=== PATIENT | male | born 1970 | race Caucasian/White ===

== ENCOUNTER 2018-06-07 23:33 | Emergency (ER) | payer MEDICAID ==
[~2018-06-07] VITALS: Ht 182.9 cm; Wt 100.0 kg
[~2018-06-07 23:33] MED LIST: LACT1CAP26 PO
[2018-06-07] MEDS ORDERED: normal saline 1000ML IV soln IVB ONE (23:40)
[2018-06-07 23:56] LABS: BASOPHILS # (AUTO) 0.1 X10'3 (0-0.2); BASOPHILS % (AUTO) 0.6 % (0-1); EOSINOPHILS # (AUTO) 0.3 X10'3 (0-0.9); HEMATOCRIT 41.5 % (42.0-52.0); HEMOGLOBIN 13.8 g/dl (14.0-17.9); LYMPHOCYTES # (AUTO) 2.4 X10'3 (1.1-4.8); LYMPHOCYTES % (AUTO) 27.6 % (21-51); MEAN CORPUSCULAR HEMOGLOBIN 29.2 PG (27.0-31.0); MEAN CORPUSCULAR HGB CONC 33.3 g/dL (33.0-36.5); MEAN CORPUSCULAR VOLUME 87.9 FL (78-98); MEAN PLATELET VOLUME 7.7 FL (7.4-10.4); MONOCYTES # (AUTO) 0.6 X10'3 (0-0.9); MONOCYTES % (AUTO) 7.4 % (2-12); NEUTROPHILS # (AUTO) 5.2 X10'3 (1.8-7.7); NEUTROPHILS % (AUTO) 60.4 % (42-75); PLATELET COUNT 259 X10'3 (140-440); RED BLOOD COUNT 4.72 X10'6 (4.70-6.10); WHITE BLOOD COUNT 8.6 X10'3 (4.5-11.0)
[2018-06-08 00:06] LABS: ALANINE AMINOTRANSFERASE 28 U/L (12-78); ALBUMIN 3.5 G/DL (3.4-5.0); ALBUMIN/GLOBULIN RATIO 0.9 (1.1-1.5); ALKALINE PHOSPHATASE 112 IU/L (46-116); ANION GAP 3 (8-16); ASPARTATE AMINO TRANSFERASE 24 U/L (10-37); BILIRUBIN,TOTAL 0.2 MG/DL (0.1-1.0); BLOOD UREA NITROGEN 14 MG/DL (7-18); BUN/CREATININE RATIO 14.1 (5.4-32.0); CALCIUM 8.5 MG/DL (8.5-10.1); CHLORIDE 103 MMOL/L (99-107); CREATININE 0.99 MG/DL (0.60-1.10); ETHANOL < 0.010 GM/DL (0.0-0.010); GLUCOSE 104 MG/DL (70-104); POTASSIUM 4.5 MMOL/L (3.5-5.1); SODIUM 140 MMOL/L (135-145); TOTAL CARBON DIOXIDE 33.6 MMOL/L (24-32); TOTAL PROTEIN 7.4 G/DL (6.4-8.2); eGFR 81 ML/MIN
[2018-06-08 05:00] VITALS: BP 119/86
--- NOTE | 2018-06-08 05:37 | NUR ---
MAY CALL ELIZABETH WHEN PT READY FOR DISCHARGE [phone] OR [phone]
== END 2018-06-08 06:24 | disposition home or self-care (01) ==
LOC: ER 23:34
DX: R40.2412 Glasgow coma scale score 13-15, at arrival to emergency department (principal); F19.10 Other psychoactive substance abuse, uncomplicated; F12.90 Cannabis use, unspecified, uncomplicated; F15.90 Other stimulant use, unspecified, uncomplicated; F11.90 Opioid use, unspecified, uncomplicated; F17.200 Nicotine dependence, unspecified, uncomplicated; Z59.0 Homelessness; Z56.0 Unemployment, unspecified; Z98.890 Other specified postprocedural states; Z88.0 Allergy status to penicillin
CPT/HCPCS: 36415; 71045; 80053; 80320; 82948; 85025; 93005; 99284; J7030

== ENCOUNTER 2019-01-26 16:05 | Inpatient (IN) | payer MEDICAID, OTHER ==
[~2019-01-26] VITALS: Ht 185.4 cm; Wt 82.3 kg
[2019-01-26] MEDS ORDERED: LIDOcaine 1% 30ml preserv. free vial IJ STA (16:58)
[2019-01-26] MEDS ORDERED: BUPIVAcaine/PF 7.5mg/ml (0.75%) 10ml vial IJ ONE (17:00)
[2019-01-26] MEDS ORDERED: ketorolac trometh. 30mg/ml inj. IV ONE (17:15)
[2019-01-26] MEDS ORDERED: morphine 10mg/ml inj. IV ONE ×2 (17:25→19:00)
[2019-01-26] MEDS: normal saline 1000ml 1,000 ML IV SCH (17:48)
[2019-01-26] MEDS ORDERED: magnesium 2GM in 50ml NS 50 ML IV PRN (17:50)
[2019-01-26] MEDS ORDERED: HYDROcodone/acetaminophen 5mg/325mg tablet PO PRN (17:50)
[2019-01-26] MEDS ORDERED: potassium CL 10mEq/100ml bag 100 ML IV PRN ×2 (17:50)
[2019-01-26] MEDS ORDERED: morphine 2 MG/ML inj. syringe IV PRN (17:50)
[2019-01-26] MEDS ORDERED: acetaminophen 325mg tablet PO PRN ×2 (17:50)
[2019-01-26] MEDS ORDERED: ondansetron/PF 4mg/2ml inj IV PRN (17:50)
[2019-01-26] MEDS ORDERED: magnesium 4gm in 100ml NS 100 ML IV PRN (17:50)
[2019-01-26] MEDS ORDERED: magnesium Cl slow-release 64mg tablet PO PRN (17:50)
[2019-01-26] MEDS ORDERED: potassium Cl 20 mEq SR tablet PO PRN (17:50)
[2019-01-26] MEDS: morphine 2 MG/ML inj. syringe IV PRN ×2 (18:07→21:56)
[2019-01-26] MEDS ORDERED: NO HOME MEDS (18:12)
--- NOTE | 2019-01-26 18:56 | NUR ---
verbal received by sai ariza for msiv 6 mg x1 now. pt in severe pain as he was just transferred onto the hospital bed and placed in 10lbs traction. pt with room assisignment. report being given now.
[2019-01-26 19:30] VITALS: BP 125/81
--- NOTE | 2019-01-26 19:30 | NUR ---
Patient in room ORTHO 4020. I have received report from CALL CENTER OPERATOR and had the opportunity to ask questions and assume patient care.
[2019-01-26 19:34] LABS: BASOPHILS % (AUTO) 0.1 % (0-1); EOSINOPHILS % (AUTO) 0.1 % (0-6); HEMATOCRIT 38.9 % (42.0-52.0); HEMOGLOBIN 13.4 g/dl (14.0-17.9); LYMPHOCYTES # (AUTO) 1.3 X10'3 (1.1-4.8); LYMPHOCYTES % (AUTO) 8.5 % (21-51); MEAN CORPUSCULAR HGB CONC 34.5 g/dL (33.0-36.5); MEAN CORPUSCULAR VOLUME 87.1 FL (78-98); MEAN PLATELET VOLUME 7.1 FL (7.4-10.4); MONOCYTES # (AUTO) 0.7 X10'3 (0-0.9); MONOCYTES % (AUTO) 4.7 % (2-12); NEUTROPHILS % (AUTO) 86.6 % (42-75); PLATELET COUNT 247 X10'3 (140-440); RED BLOOD COUNT 4.47 X10'6 (4.70-6.10); RED CELL DISTRIBUTION WIDTH 13.8 % (11.5-14.5)
[2019-01-26 19:42] LABS: ALANINE AMINOTRANSFERASE 24 U/L (12-78); ALBUMIN 3.4 G/DL (3.4-5.0); ALBUMIN/GLOBULIN RATIO 0.9 (1.1-1.5); ALKALINE PHOSPHATASE 102 IU/L (46-116); ANION GAP 8 (8-16); ASPARTATE AMINO TRANSFERASE 29 U/L (10-37); BILIRUBIN,TOTAL 0.5 MG/DL (0.1-1.0); BLOOD UREA NITROGEN 6 MG/DL (7-18); BUN/CREATININE RATIO 6.3 (5.4-32.0); CALCIUM 8.3 MG/DL (8.5-10.1); CHLORIDE 101 MMOL/L (99-107); CREATININE 0.95 MG/DL (0.60-1.10); GLUCOSE 95 MG/DL (70-104); POTASSIUM 3.4 MMOL/L (3.5-5.1); SODIUM 138 MMOL/L (135-145); TOTAL CARBON DIOXIDE 29.3 MMOL/L (24-32); TOTAL PROTEIN 7.2 G/DL (6.4-8.2); eGFR 85 ML/MIN
[2019-01-26] MEDS: potassium Cl 20 mEq SR tablet PO PRN (20:31)
[2019-01-26] MEDS: HYDROcodone/acetaminophen 10/325mg tab PO PRN (20:31)
[2019-01-26] MEDS: docusate sod 100mg capsule PO SCH (20:31)
[2019-01-26] MEDS: heparin, porcine 5000 units/ml vial SQ SCH (20:33)
[2019-01-26] MEDS ORDERED: temazepam 15mg capsule PO PRN (21:00)
[2019-01-26] MEDS ORDERED: morphine 4 MG/ML inj SYRINge IV ONE (23:35)
[2019-01-27] VITALS (19 sets, daily range): BP systolic 115–148; BP diastolic 61–106
[2019-01-27] MEDS: HYDROcodone/acetaminophen 10/325mg tab PO PRN ×4 (00:03→20:00)
[2019-01-27] MEDS: potassium Cl 20 mEq SR tablet PO PRN (00:03)
[2019-01-27] MEDS ORDERED: morphine/NS 5 mg/ml CADD 100 ML IV SCH ×2 (02:25→02:37)
[2019-01-27] MEDS ORDERED: CADD PCA waste documentation MC SCH (02:40)
[2019-01-27] MEDS ORDERED: naloxone 0.4 mg/ml inj IV PRN ×2 (02:40→03:40)
[2019-01-27] MEDS ORDERED: morphine/NS 5 mg/ml CADD 50 ML IV SCH (03:38)
[2019-01-27] MEDS ORDERED: CADD PCA waste documentation MC PRN (03:40)
[2019-01-27] MEDS: normal saline 1000ml 1,000 ML IV SCH ×2 (03:48→13:55)
[2019-01-27] MEDS: MORPHINE CADD 5 MG/ML 50ML IV SCH ×5 (04:10→11:00)
--- NOTE | 2019-01-27 06:00 | NUR ---
Patient in room ORTHO 4020. I have received report from KATELYN CHEEMA and had the opportunity to ask questions and assume patient care.
[2019-01-27 06:23] LABS: BASOPHILS % (AUTO) 0.1 % (0-1); EOSINOPHILS % (AUTO) 0.4 % (0-6); HEMATOCRIT 37.1 % (42.0-52.0); HEMOGLOBIN 12.7 g/dl (14.0-17.9); LYMPHOCYTES # (AUTO) 2.1 X10'3 (1.1-4.8); LYMPHOCYTES % (AUTO) 22.3 % (21-51); MEAN CORPUSCULAR HEMOGLOBIN 30.5 PG (27.0-31.0); MEAN CORPUSCULAR HGB CONC 34.1 g/dL (33.0-36.5); MEAN CORPUSCULAR VOLUME 89.3 FL (78-98); MEAN PLATELET VOLUME 7.1 FL (7.4-10.4); MONOCYTES # (AUTO) 0.6 X10'3 (0-0.9); MONOCYTES % (AUTO) 6.8 % (2-12); NEUTROPHILS # (AUTO) 6.7 X10'3 (1.8-7.7); NEUTROPHILS % (AUTO) 70.4 % (42-75); PLATELET COUNT 214 X10'3 (140-440); RED BLOOD COUNT 4.16 X10'6 (4.70-6.10); RED CELL DISTRIBUTION WIDTH 13.8 % (11.5-14.5); WHITE BLOOD COUNT 9.5 X10'3 (4.5-11.0)
[2019-01-27 06:36] LABS: ALANINE AMINOTRANSFERASE 25 U/L (12-78); ALBUMIN 3.2 G/DL (3.4-5.0); ALBUMIN/GLOBULIN RATIO 0.9 (1.1-1.5); ALKALINE PHOSPHATASE 100 IU/L (46-116); ANION GAP 5 (8-16); ASPARTATE AMINO TRANSFERASE 26 U/L (10-37); BILIRUBIN,TOTAL 0.8 MG/DL (0.1-1.0); BLOOD UREA NITROGEN 6 MG/DL (7-18); BUN/CREATININE RATIO 6.4 (5.4-32.0); CHLORIDE 106 MMOL/L (99-107); CREATININE 0.94 MG/DL (0.60-1.10); GLUCOSE 110 MG/DL (70-104); MAGNESIUM 1.7 MG/DL (1.5-2.4); POTASSIUM 3.7 MMOL/L (3.5-5.1); SODIUM 140 MMOL/L (135-145); TOTAL PROTEIN 6.7 G/DL (6.4-8.2); eGFR 86 ML/MIN
[2019-01-27] MEDS: docusate sod 100mg capsule PO SCH ×2 (07:15→19:59)
[2019-01-27] MEDS: K and/or MAG REPLACEMENT MC SCH (07:15)
[2019-01-27] MEDS: heparin, porcine 5000 units/ml vial SQ SCH (07:16)
[2019-01-27 08:00] LABS: CLARITY,URINE CLEAR (Clear); COLOR,URINE YELLOW (Yellow); GLUCOSE, URINE NEGATIVE (Neg); KETONES,URINE NEGATIVE (Neg); LEUKOCYTE ESTERASE ,URINE NEGATIVE (Neg); NITRITES, URINE NEGATIVE (Neg); OCCULT BLOOD,URINE MODERATE (Neg); PROTEIN,URINE NEGATIVE (Neg); UROBILINOGEN,URINE 0.2 E.U/dL (0.2-1.0)
[2019-01-27] MEDS ORDERED: docusate sod 100mg capsule PO SCH (08:00)
[2019-01-27 08:02] LABS: UA COLLECTION TYPE FOLEY CATH
[2019-01-27 08:06] LABS: BACTERIA,URINE NONE SEEN /HPF (Neg); WBC,URINE 0-4 /HPF (0-4)
[2019-01-27 08:07] LABS: MUCUS STRANDS NONE SEEN /LPF (Neg); SQUAMOUS EPITHELIAL CELL,UR NONE SEEN /LPF (FEW)
[2019-01-27] MEDS ORDERED: ringers solution, lacted 1,000 ML IV SCH (08:07)
[2019-01-27] MEDS ORDERED: hydrALAZINE 20mg/ml inj. IV PRN (08:10)
[2019-01-27] MEDS ORDERED: ondansetron/PF 4mg/2ml inj IV PRN (08:10)
[2019-01-27] MEDS ORDERED: labetalol 20mg/4ml (5mg/ml) syringe IV PRN (08:10)
[2019-01-27] MEDS ORDERED: fentaNYL/PF 50MCG/1 ML 2ML syringe IV PRN ×2 (08:10)
[2019-01-27] MEDS ORDERED: morphine 4 MG/ML inj SYRINge IV PRN ×2 (08:10)
[2019-01-27 08:16] LABS: URINE AMPHETAMINE SCREEN POSITIVE (Neg); URINE BARBITUATE SCREEN NEGATIVE (Neg); URINE BENZODIAZEPINES SCREEN NEGATIVE (Neg); URINE CANNABINOID SCREEN POSITIVE (Neg); URINE COCAINE SCREEN NEGATIVE (Neg); URINE METHADONE SCREEN NEGATIVE (Neg); URINE OPIATE SCREEN POSITIVE (Neg); URINE PHENCYCLIDINE SCREEN NEGATIVE (Neg)
[2019-01-27] MEDS ORDERED: fentaNYL/PF 50MCG/1 ML 2ML syringe ONE ×2 (08:35→09:31)
[2019-01-27] MEDS ORDERED: LIDOcaine 2% (20mg/ml) 5ml vial ONE (08:36)
[2019-01-27] MEDS ORDERED: dexamethasone sod phosphate 4mg/ml inj. ONE (08:36)
[2019-01-27] MEDS ORDERED: midazolam 2 mg/2 ml injection ONE (08:36)
[2019-01-27] MEDS ORDERED: ondansetron/PF 4mg/2ml inj ONE (08:36)
[2019-01-27] MEDS ORDERED: propofol inj 20 ML IV ONE (08:36)
--- NOTE | 2019-01-27 08:40 | NUR ---
PATIENT TO THE OR.
[2019-01-27] MEDS ORDERED: sevoflurane 250ml liquid IH ONE (08:50)
[2019-01-27] MEDS ORDERED: clindamycin phosphate 150mg/ml inj. ONE (08:54)
[2019-01-27] MEDS ORDERED: acetaminophen 1,000mg/100ml IV 100 ML IV ONE (09:12)
--- NOTE | 2019-01-27 10:00 | NUR ---
ADMITTED TO PACU FROM OR ACCOMPANIED BY ANESTHESIA. INTIAL PHYSICAL ASSESSMENT DONE AND RECORDED. REPORT RECEIVED FROM ANESTHESIA. NOTED STAINING ON ISLAND DRESSING LEFT LATERAL HIP, MARKED, DR NICHOLAS OBSERVED AND AWARE, TO REINFORCE IF NEEDED.
--- NOTE | 2019-01-27 11:00 | NUR ---
PACU DISCHARGE CRITERIA MET, REPORT GIVEN TO FLOOR. DENIES PAIN OR DISCOMFORT, TRANSFERRED TO ROOM IN STABLE GOOD CONDITION.
--- NOTE | 2019-01-27 11:05 | NUR ---
[facility] C[facility], RECEIVED REPORT FROM DUYEN CHEEMA, POST OP VITALS STARTED, REPORTS 0/10 PAIN, , WILL CONTINUE TO MONITOR.
[2019-01-27] MEDS: morphine 4 MG/ML inj SYRINge IV PRN ×3 (13:15→22:30)
[2019-01-27] MEDS: clindamycin 600mg/D5W 50ml 50 ML IV SCH ×2 (13:55→19:58)
--- NOTE | 2019-01-27 18:10 | NUR ---
Problems reprioritized. Patient report given, questions answered & plan of care reviewed with KATELYN CHEEMA.
--- NOTE | 2019-01-27 18:13 | NUR ---
Problems reprioritized. Patient report given, questions answered & plan of care reviewed with KATELYN CHEEMA.
[2019-01-28] MEDS: normal saline 1000ml 1,000 ML IV SCH ×3 (00:13→19:04)
[2019-01-28] MEDS: HYDROcodone/acetaminophen 10/325mg tab PO PRN ×6 (00:17→22:50)
[2019-01-28 01:59] VITALS: BP 127/81
[2019-01-28] MEDS: morphine 4 MG/ML inj SYRINge IV PRN (04:28)
[2019-01-28 05:32] LABS: BASOPHILS % (AUTO) 0.1 % (0-1); EOSINOPHILS % (AUTO) 0 % (0-6); HEMATOCRIT 30.9 % (42.0-52.0); HEMOGLOBIN 10.6 g/dl (14.0-17.9); LYMPHOCYTES # (AUTO) 1.7 X10'3 (1.1-4.8); LYMPHOCYTES % (AUTO) 12.7 % (21-51); MEAN CORPUSCULAR HEMOGLOBIN 30.4 PG (27.0-31.0); MEAN CORPUSCULAR HGB CONC 34.2 g/dL (33.0-36.5); MEAN CORPUSCULAR VOLUME 88.8 FL (78-98); MEAN PLATELET VOLUME 7.4 FL (7.4-10.4); MONOCYTES % (AUTO) 7.8 % (2-12); NEUTROPHILS # (AUTO) 10.6 X10'3 (1.8-7.7); NEUTROPHILS % (AUTO) 79.4 % (42-75); PLATELET COUNT 188 X10'3 (140-440); RED BLOOD COUNT 3.47 X10'6 (4.70-6.10); RED CELL DISTRIBUTION WIDTH 13.9 % (11.5-14.5); WHITE BLOOD COUNT 13.3 X10'3 (4.5-11.0)
[2019-01-28 05:53] LABS: ALANINE AMINOTRANSFERASE 25 U/L (12-78); ALBUMIN 2.9 G/DL (3.4-5.0); ALBUMIN/GLOBULIN RATIO 0.9 (1.1-1.5); ALKALINE PHOSPHATASE 84 IU/L (46-116); ANION GAP 8 (8-16); ASPARTATE AMINO TRANSFERASE 24 U/L (10-37); BILIRUBIN,TOTAL 0.4 MG/DL (0.1-1.0); BLOOD UREA NITROGEN 10 MG/DL (7-18); BUN/CREATININE RATIO 11.5 (5.4-32.0); CHLORIDE 105 MMOL/L (99-107); CREATININE 0.87 MG/DL (0.60-1.10); GLUCOSE 132 MG/DL (70-104); MAGNESIUM 1.8 MG/DL (1.5-2.4); SODIUM 140 MMOL/L (135-145); TOTAL CARBON DIOXIDE 27.3 MMOL/L (24-32); eGFR > 90 ML/MIN
[2019-01-28 06:00] VITALS: BP 117/86
--- NOTE | 2019-01-28 06:22 | NUR ---
received report from danielle james
[2019-01-28] MEDS: K and/or MAG REPLACEMENT MC SCH (07:07)
[2019-01-28] MEDS: enoxaparin 40mg/0.4ml syringe SQ SCH (07:12)
[2019-01-28] MEDS: docusate sod 100mg capsule PO SCH ×2 (07:13→20:00)
[2019-01-28 10:00] VITALS: BP 132/71
[2019-01-28 14:00] VITALS: BP 116/78
[2019-01-28 18:00] VITALS: BP 155/93
--- NOTE | 2019-01-28 18:20 | NUR ---
GAVE REPORT TO June,
[2019-01-28 22:00] VITALS: BP 111/76
[2019-01-29] MEDS: normal saline 1000ml 1,000 ML IV SCH ×2 (04:51→15:27)
[2019-01-29] MEDS: HYDROcodone/acetaminophen 10/325mg tab PO PRN ×4 (04:54→19:02)
[2019-01-29 06:00] VITALS: BP 118/87
--- NOTE | 2019-01-29 06:00 | NUR ---
Patient in room ORTHO 4020. I have received report from Noemí RN and had the opportunity to ask questions and assume patient care.
[2019-01-29 06:11] LABS: BASOPHILS % (AUTO) 0.3 % (0-1); EOSINOPHILS # (AUTO) 0.2 X10'3 (0-0.9); EOSINOPHILS % (AUTO) 1.7 % (0-6); HEMATOCRIT 28.6 % (42.0-52.0); HEMOGLOBIN 9.8 g/dl (14.0-17.9); LYMPHOCYTES # (AUTO) 2.8 X10'3 (1.1-4.8); LYMPHOCYTES % (AUTO) 29.2 % (21-51); MEAN CORPUSCULAR HEMOGLOBIN 30.7 PG (27.0-31.0); MEAN CORPUSCULAR HGB CONC 34.3 g/dL (33.0-36.5); MEAN CORPUSCULAR VOLUME 89.5 FL (78-98); MEAN PLATELET VOLUME 7.1 FL (7.4-10.4); MONOCYTES # (AUTO) 0.9 X10'3 (0-0.9); MONOCYTES % (AUTO) 9.3 % (2-12); NEUTROPHILS # (AUTO) 5.7 X10'3 (1.8-7.7); NEUTROPHILS % (AUTO) 59.5 % (42-75); PLATELET COUNT 170 X10'3 (140-440); RED CELL DISTRIBUTION WIDTH 13.9 % (11.5-14.5); WHITE BLOOD COUNT 9.6 X10'3 (4.5-11.0)
[2019-01-29 06:38] LABS: ALANINE AMINOTRANSFERASE 22 U/L (12-78); ALBUMIN 2.7 G/DL (3.4-5.0); ALBUMIN/GLOBULIN RATIO 0.8 (1.1-1.5); ALKALINE PHOSPHATASE 78 IU/L (46-116); ANION GAP 7 (8-16); ASPARTATE AMINO TRANSFERASE 24 U/L (10-37); BILIRUBIN,TOTAL 0.5 MG/DL (0.1-1.0); BLOOD UREA NITROGEN 7 MG/DL (7-18); BUN/CREATININE RATIO 9.9 (5.4-32.0); CALCIUM 7.6 MG/DL (8.5-10.1); CHLORIDE 105 MMOL/L (99-107); CREATININE 0.71 MG/DL (0.60-1.10); GLUCOSE 91 MG/DL (70-104); MAGNESIUM 1.6 MG/DL (1.5-2.4); POTASSIUM 3.6 MMOL/L (3.5-5.1); SODIUM 138 MMOL/L (135-145); TOTAL CARBON DIOXIDE 26.3 MMOL/L (24-32); eGFR > 90 ML/MIN
[2019-01-29] MEDS: morphine 4 MG/ML inj SYRINge IV PRN ×2 (06:54→15:51)
[2019-01-29] MEDS: enoxaparin 40mg/0.4ml syringe SQ SCH (07:55)
[2019-01-29] MEDS: docusate sod 100mg capsule PO SCH ×2 (07:59→20:00)
[2019-01-29] MEDS: K and/or MAG REPLACEMENT MC SCH (07:59)
[2019-01-29 11:00] VITALS: BP 123/86
[2019-01-29 18:00] VITALS: BP 122/86
--- NOTE | 2019-01-29 18:29 | NUR ---
Problems reprioritized. Patient report given, questions answered & plan of care reviewed with Noemí CHEEMA.
[2019-01-30] MEDS: HYDROcodone/acetaminophen 10/325mg tab PO PRN ×6 (00:05→23:38)
[2019-01-30] MEDS: normal saline 1000ml 1,000 ML IV SCH ×3 (01:48→20:16)
[2019-01-30 06:00] VITALS: BP 120/93
[2019-01-30 06:05] LABS: ALANINE AMINOTRANSFERASE 29 U/L (12-78); ALBUMIN 2.7 G/DL (3.4-5.0); ALBUMIN/GLOBULIN RATIO 0.8 (1.1-1.5); ALKALINE PHOSPHATASE 84 IU/L (46-116); ANION GAP 7 (8-16); ASPARTATE AMINO TRANSFERASE 37 U/L (10-37); BASOPHILS % (AUTO) 0.4 % (0-1); BILIRUBIN,TOTAL 0.4 MG/DL (0.1-1.0); BLOOD UREA NITROGEN 8 MG/DL (7-18); CALCIUM 8.2 MG/DL (8.5-10.1); CHLORIDE 105 MMOL/L (99-107); EOSINOPHILS # (AUTO) 0.2 X10'3 (0-0.9); EOSINOPHILS % (AUTO) 1.6 % (0-6); GLUCOSE 96 MG/DL (70-104); HEMATOCRIT 28.9 % (42.0-52.0); HEMOGLOBIN 10.1 g/dl (14.0-17.9); LYMPHOCYTES # (AUTO) 1.9 X10'3 (1.1-4.8); LYMPHOCYTES % (AUTO) 20.3 % (21-51); MAGNESIUM 1.8 MG/DL (1.5-2.4); MEAN CORPUSCULAR HEMOGLOBIN 31.1 PG (27.0-31.0); MEAN CORPUSCULAR HGB CONC 34.8 g/dL (33.0-36.5); MEAN CORPUSCULAR VOLUME 89.2 FL (78-98); MEAN PLATELET VOLUME 7.3 FL (7.4-10.4); MONOCYTES # (AUTO) 0.7 X10'3 (0-0.9); NEUTROPHILS # (AUTO) 6.5 X10'3 (1.8-7.7); NEUTROPHILS % (AUTO) 69.7 % (42-75); PLATELET COUNT 184 X10'3 (140-440); RED BLOOD COUNT 3.25 X10'6 (4.70-6.10); RED CELL DISTRIBUTION WIDTH 13.8 % (11.5-14.5); SODIUM 139 MMOL/L (135-145); TOTAL PROTEIN 6.2 G/DL (6.4-8.2); WHITE BLOOD COUNT 9.4 X10'3 (4.5-11.0); eGFR > 90 ML/MIN
--- NOTE | 2019-01-30 06:33 | NUR ---
Patient in room ORTHO 4020. I have received report from DENI ARANDA and had the opportunity to ask questions and assume patient care.
[2019-01-30] MEDS: morphine 4 MG/ML inj SYRINge IV PRN ×3 (07:27→16:42)
[2019-01-30] MEDS: docusate sod 100mg capsule PO SCH ×2 (07:30→19:23)
[2019-01-30] MEDS: K and/or MAG REPLACEMENT MC SCH (08:00)
[2019-01-30] MEDS: enoxaparin 40mg/0.4ml syringe SQ SCH (08:43)
[2019-01-30 10:00] VITALS: BP 123/94
[2019-01-30 18:00] VITALS: BP 123/80
--- NOTE | 2019-01-30 18:37 | NUR ---
Problems reprioritized. Patient report given, questions answered & plan of care reviewed with DENI HARRISON.
[2019-01-30 22:00] VITALS: BP 125/83
[2019-01-31] MEDS: HYDROcodone/acetaminophen 10/325mg tab PO PRN ×2 (04:25→08:01)
[2019-01-31 06:00] VITALS: BP 134/96
--- NOTE | 2019-01-31 06:05 | NUR ---
Patient in room ORTHO 4020. I have received report from Chantell and had the opportunity to ask questions and assume patient care.
[2019-01-31 06:18] LABS: BASOPHILS % (AUTO) 0.4 % (0-1); EOSINOPHILS # (AUTO) 0.1 X10'3 (0-0.9); EOSINOPHILS % (AUTO) 1.2 % (0-6); HEMOGLOBIN 10.2 g/dl (14.0-17.9); LYMPHOCYTES # (AUTO) 1.5 X10'3 (1.1-4.8); LYMPHOCYTES % (AUTO) 19.4 % (21-51); MEAN CORPUSCULAR HEMOGLOBIN 30.4 PG (27.0-31.0); MEAN CORPUSCULAR HGB CONC 34.1 g/dL (33.0-36.5); MEAN CORPUSCULAR VOLUME 89.3 FL (78-98); MEAN PLATELET VOLUME 7.1 FL (7.4-10.4); MONOCYTES # (AUTO) 0.7 X10'3 (0-0.9); MONOCYTES % (AUTO) 9.2 % (2-12); NEUTROPHILS # (AUTO) 5.5 X10'3 (1.8-7.7); NEUTROPHILS % (AUTO) 69.8 % (42-75); PLATELET COUNT 211 X10'3 (140-440); RED BLOOD COUNT 3.36 X10'6 (4.70-6.10); RED CELL DISTRIBUTION WIDTH 13.9 % (11.5-14.5); WHITE BLOOD COUNT 7.9 X10'3 (4.5-11.0)
--- NOTE | 2019-01-31 06:23 | NUR ---
REPORT GIVEN TO DENI ABDUL.
[2019-01-31 06:31] LABS: ALBUMIN 2.8 G/DL (3.4-5.0); ANION GAP 5 (8-16); BILIRUBIN,TOTAL 0.6 MG/DL (0.1-1.0); BLOOD UREA NITROGEN 9 MG/DL (7-18); BUN/CREATININE RATIO 10.6 (5.4-32.0); CALCIUM 8.3 MG/DL (8.5-10.1); CHLORIDE 106 MMOL/L (99-107); CREATININE 0.85 MG/DL (0.60-1.10); GLUCOSE 105 MG/DL (70-104); MAGNESIUM 1.9 MG/DL (1.5-2.4); POTASSIUM 4.6 MMOL/L (3.5-5.1); SODIUM 139 MMOL/L (135-145); TOTAL CARBON DIOXIDE 28.2 MMOL/L (24-32); TOTAL PROTEIN 6.6 G/DL (6.4-8.2); eGFR > 90 ML/MIN
[2019-01-31 06:32] LABS: ALANINE AMINOTRANSFERASE 38 U/L (12-78); ALBUMIN/GLOBULIN RATIO 0.7 (1.1-1.5); ALKALINE PHOSPHATASE 92 IU/L (46-116); ASPARTATE AMINO TRANSFERASE 37 U/L (10-37)
[2019-01-31] MEDS: docusate sod 100mg capsule PO SCH (08:00)
[2019-01-31] MEDS: K and/or MAG REPLACEMENT MC SCH (08:00)
[2019-01-31] MEDS: enoxaparin 40mg/0.4ml syringe SQ SCH (08:02)
[2019-01-31 10:00] VITALS: BP 128/93
[2019-01-31] MEDS ORDERED: HYDR-4353 PO (11:12)
--- NOTE | 2019-01-31 11:56 | NUR ---
Student documentation: I have reviewed all interventions, assessments performed and documented by Christiano JOHNSON [facility]. Student Medication Administration: For this medication-pass time frame, all medication were reviewed, dispensed, administered and documented per hospital policy by Christiano Syed [facility].
--- NOTE | 2019-01-31 12:23 | NUR ---
Reviewed discharge instructions with pt. Pt verbalized understanding. Pt was provided an Rx for pain medication. A copy was made and placed in the chart. Pt is alert, oriented and does not c/o discomfort at this time. Pt was wheeled downstairs by staff to be driven home by [employer]. All of pt's belongings were returned to pt.
== END 2019-01-31 12:20 | disposition still patient (30) | DRG 308 ==
LOC: ER 16:05 → ED HOLD 17:51 → ORTHO 4S 19:35
PROVIDERS: ADMIT Internal Medicine; ATTEND Internal Medicine
PROC: 0QS706Z Reposition Left Upper Femur with Intramedullary Internal Fixation Device, Open Approach (ICD-10-PCS; principal; 2019-01-27 08:50)
DX: S72.142A Displaced intertrochanteric fracture of left femur, initial encounter for closed fracture (principal); D62 Acute posthemorrhagic anemia
CPT/HCPCS: 36415; 64450; 70450; 71045; 73502; 76000; 80053; 80305; 81001; 82948; 83605; 83735; 85025; 85610; 87040; 87081; 93005; 93308; 96374; 96375; 97110; 97112; 97116; 97161; 97530; 97535; 99285; A4618; A6222; C1713; G0378; J0131; J1100; J1644; J1650; J1885; J2001; J2250; J2270; J2405; J2704; J3010; J3490; J7030; J7120

== ENCOUNTER 2021-01-08 20:26 | Emergency (ER) | payer MEDICAID, OTHER ==
[~2021-01-08] VITALS: Ht 182.9 cm; Wt 90.8 kg
[~2021-01-08 20:26] MED LIST changes: +HYDR-4353 PO; -LACT1CAP26 PO
[2021-01-08 20:49] VITALS: BP 113/80
== END 2021-01-08 22:16 | disposition left against medical advice (07) ==
LOC: ER 20:27
DX: R10.31 Right lower quadrant pain (principal); Z53.21 Procedure and treatment not carried out due to patient leaving prior to being seen by health care provider

== ENCOUNTER 2021-01-09 12:43 | Emergency (ER) | payer OTHER ==
[~2021-01-09] VITALS: Ht 185.4 cm; Wt 84.1 kg
[2021-01-09 13:11] VITALS: BP 107/77
[2021-01-10] MEDS ORDERED: CEPH250T PO (15:54)
[2021-01-10] MEDS ORDERED: SULF1TAB45 PO (15:54)
== END 2021-01-09 21:53 | disposition left against medical advice (07) ==
LOC: ER 12:43
DX: K46.9 Unspecified abdominal hernia without obstruction or gangrene (principal); F12.90 Cannabis use, unspecified, uncomplicated; F15.90 Other stimulant use, unspecified, uncomplicated; F11.90 Opioid use, unspecified, uncomplicated; Z98.890 Other specified postprocedural states; Z72.89 Other problems related to lifestyle; Z60.2 Problems related to living alone; Z56.0 Unemployment, unspecified; Z59.00 Homelessness unspecified; Z88.0 Allergy status to penicillin; Z79.899 Other long term (current) drug therapy
CPT/HCPCS: 71045; 99283

== ENCOUNTER 2021-01-10 08:31 | Emergency (ER) | payer SELFPAY ==
[~2021-01-10] VITALS: Ht 185.4 cm; Wt 84.1 kg
[2021-01-10] MEDS ORDERED: meropenem inj 1 GM in normal saline 100ml IV soln 100 ML IV STA (09:14)
[2021-01-10] MEDS ORDERED: VANCOMYCIN 1GM/200ML IVPB 200 ML IV ONE (09:15)
[2021-01-10] MEDS ORDERED: vancomycin/NS 1 GM ADD-VANTAGE 200 ML IV ONE (09:20)
[2021-01-10 09:46] LABS: ALBUMIN 2.9 G/DL (3.4-5.0); BLOOD UREA NITROGEN 9 MG/DL (7-18); BUN/CREATININE RATIO 9.5 (5.4-32.0); CHLORIDE 97 MMOL/L (99-107); CREATININE 0.95 MG/DL (0.60-1.10); GLUCOSE 106 MG/DL (70-104); TOTAL CARBON DIOXIDE 30.6 MMOL/L (24-32); eGFR 84 ML/MIN
[2021-01-10 09:47] LABS: ANION GAP 7 (8-16); POTASSIUM 3.9 MMOL/L (3.5-5.1); SODIUM 135 MMOL/L (135-145)
[2021-01-10 10:04] LABS: BASOPHILS % (AUTO) 0.2 % (0-1); EOSINOPHILS # (AUTO) 0.1 X10'3 (0-0.9); EOSINOPHILS % (AUTO) 0.4 % (0-6); HEMATOCRIT 37.1 % (42.0-52.0); HEMOGLOBIN 12.3 g/dl (14.0-17.9); LYMPHOCYTES # (AUTO) 1.6 X10'3 (1.1-4.8); LYMPHOCYTES % (AUTO) 12.3 % (21-51); MEAN CORPUSCULAR HEMOGLOBIN 28.2 PG (27.0-31.0); MEAN CORPUSCULAR HGB CONC 33.2 g/dL (33.0-36.5); MEAN CORPUSCULAR VOLUME 84.8 FL (78-98); MEAN PLATELET VOLUME 7.6 FL (7.4-10.4); MONOCYTES # (AUTO) 1.3 X10'3 (0-0.9); NEUTROPHILS # (AUTO) 9.9 X10'3 (1.8-7.7); NEUTROPHILS % (AUTO) 77.1 % (42-75); PLATELET COUNT 351 X10'3 (140-440); RED BLOOD COUNT 4.37 X10'6 (4.70-6.10); RED CELL DISTRIBUTION WIDTH 13.8 % (11.5-14.5); WHITE BLOOD COUNT 12.8 X10'3 (4.5-11.0)
[2021-01-10] MEDS ORDERED: iohexol 300mg/ml 100ml inj. ONE (14:59)
[2021-01-10] MEDS ORDERED: LIDOcaine 1% W/epiNEPHrine 1:200,000 10ml vial IJ ONE (15:25)
[2021-01-10] MEDS ORDERED: LIDOcaine 1% w/epiNEPHrine 1:200,000 30ml vial IJ ONE (15:40)
[2021-01-10] MEDS ORDERED: CEPH250T PO (15:54)
[2021-01-10] MEDS ORDERED: SULF1TAB45 PO (15:54)
[2021-01-10] MEDS ORDERED: vancomycin/NS 1 GM ADD-VANTAGE 250 ML IV ONE (16:55)
[2021-01-10] MEDS ORDERED: CefTRIAXone/D5W-Rocephin 1gm 50 ML IV ONE (16:55)
[2021-01-10 20:20] VITALS: BP 120/82
== END 2021-01-10 20:21 | disposition home or self-care (01) ==
LOC: ER 08:32
DX: L02.91 Cutaneous abscess, unspecified (principal)
CPT/HCPCS: 10060; 36415; 73701; 80048; 83605; 85025; 96365; 96368; 99285; J0696; J3370; Q9967

== ENCOUNTER 2021-08-06 10:28 | Outpatient (CLI) | payer MEDICAID | END 2021-08-06 23:59 | disposition home or self-care (01) | LOC: RAD 10:28 | PROVIDERS: ATTEND General Practice | DX: F11.20 Opioid dependence, uncomplicated (principal) | CPT/HCPCS: 93005 ==

== ENCOUNTER 2022-01-06 09:28 | Outpatient (CLI) | payer MEDICAID | END 2022-01-06 23:59 | disposition home or self-care (01) | LOC: RAD 09:28 | PROVIDERS: ATTEND General Practice | DX: F11.20 Opioid dependence, uncomplicated (principal) | CPT/HCPCS: 93005 ==

== ENCOUNTER 2023-05-02 09:58 | Emergency (ER) | payer MEDICAID ==
[~2023-05-02] VITALS: Ht 185.4 cm; Wt 95.4 kg
[2023-05-02 14:28] LABS: EOSINOPHILS % (AUTO) 0.4 % (0-6); LYMPHOCYTES # (AUTO) 2.1 X10'3 (1.1-4.8); MEAN PLATELET VOLUME 7.6 FL (7.4-10.4)
[2023-05-02 14:30] LABS: BASOPHILS % (AUTO) 0.2 % (0-1); EOSINOPHILS # (AUTO) 0.1 X10'3 (0-0.9); HEMATOCRIT 39.2 % (42.0-52.0); HEMOGLOBIN 12.9 g/dl (14.0-17.9); LYMPHOCYTES % (AUTO) 15.8 % (21-51); MEAN CORPUSCULAR HEMOGLOBIN 28.9 PG (27.0-31.0); MEAN CORPUSCULAR HGB CONC 32.8 g/dL (33.0-36.5); MEAN CORPUSCULAR VOLUME 87.9 FL (78-98); MONOCYTES # (AUTO) 1.3 X10'3 (0-0.9); MONOCYTES % (AUTO) 9.4 % (2-12); NEUTROPHILS # (AUTO) 9.9 X10'3 (1.8-7.7); NEUTROPHILS % (AUTO) 74.2 % (42-75); PLATELET COUNT 256 X10'3 (140-440); RED BLOOD COUNT 4.46 X10'6 (4.70-6.10); RED CELL DISTRIBUTION WIDTH 14.2 % (11.5-14.5); WHITE BLOOD COUNT 13.4 X10'3 (4.5-11.0)
[2023-05-02 14:37] LABS: APTT 32 SECONDS (22-32); INR 1.1 INR; PROTHROMBIN TIME 11.5 SECONDS (9.0-12.0)
[2023-05-02 14:38] LABS: BILIRUBIN,URINE LARGE (Neg); CLARITY,URINE CLOUDY (Clear); COLOR,URINE AMBER (Yellow); GLUCOSE, URINE 100 mg/dl (Neg); KETONES,URINE 15 mg/dl (Neg); LEUKOCYTE ESTERASE ,URINE NEGATIVE (Neg); OCCULT BLOOD,URINE SMALL (Neg); PH,URINE 5.5 (4.8-8.0); PROTEIN,URINE 100 mg/dl (Neg); UROBILINOGEN,URINE >=8.0 E.U/dL (0.2-1.0)
[2023-05-02 14:39] LABS: ALANINE AMINOTRANSFERASE 83 U/L (12-78); ALBUMIN 3.1 G/DL (3.4-5.0); ALBUMIN/GLOBULIN RATIO 0.6 (1.1-1.5); ALKALINE PHOSPHATASE 211 IU/L (46-116); ANION GAP 7 (8-16); ASPARTATE AMINO TRANSFERASE 79 U/L (10-37); BILIRUBIN,TOTAL 1.7 MG/DL (0.1-1.0); BLOOD UREA NITROGEN 10 MG/DL (7-18); BUN/CREATININE RATIO 10.6 (10.0-20.0); CALCIUM 8.2 MG/DL (8.5-10.1); CHLORIDE 97 MMOL/L (99-107); CREATININE 0.94 MG/DL (0.60-1.10); GLUCOSE 92 MG/DL (70-104); LIPASE 20 U/L (16-77); POTASSIUM 3.8 MMOL/L (3.5-5.1); SODIUM 134 MMOL/L (135-145); TOTAL CARBON DIOXIDE 30.2 MMOL/L (24-32); TOTAL PROTEIN 8.5 G/DL (6.4-8.2); eCRCL 104 ML/MIN; eGFR 84 ML/MIN
[2023-05-02 14:43] LABS: UA COLLECTION TYPE NON-SPECIFIED
[2023-05-02 14:45] LABS: NITRITES, URINE NEGATIVE (Neg)
[2023-05-02 14:47] LABS: SQUAMOUS EPITHELIAL CELL,UR MANY /LPF (FEW)
[2023-05-02 14:48] LABS: AMORPHOUS URATES 3+; TRANSITIONAL EPI CELLS,URINE MODERATE /HPF
[2023-05-02 14:50] LABS: BACTERIA,URINE 1+ /HPF (Neg); RBC,URINE 0-2 /HPF (0-2)
[2023-05-02 14:51] LABS: MUCUS STRANDS MODERATE /LPF (Neg)
[2023-05-02] MEDS: CefTRIAXone 1000mg IM Kit (w/lidocaine diluent) IM ONE (16:11)
[2023-05-02 16:21] VITALS: BP 122/88; PULSE 93; RESP 18; TEMP 98.9; O2SAT 100
== END 2023-05-02 16:20 | disposition home or self-care (01) ==
LOC: ER 09:59
DX: K63.89 Other specified diseases of intestine (principal); T59.811A Toxic effect of smoke, accidental (unintentional), initial encounter; J18.9 Pneumonia, unspecified organism; F12.90 Cannabis use, unspecified, uncomplicated; F15.90 Other stimulant use, unspecified, uncomplicated; Z88.0 Allergy status to penicillin; Z79.899 Other long term (current) drug therapy; Y92.89 Other specified places as the place of occurrence of the external cause
CPT/HCPCS: 36415; 71045; 74176; 80053; 81001; 83690; 85025; 85610; 85730; 87088; 96372; 99285; J0696

== ENCOUNTER 2023-05-27 11:26 | Emergency (ER) | payer MEDICAID ==
[~2023-05-27] VITALS: Ht 182.9 cm; Wt 95.5 kg
[2023-05-27 12:42] LABS: BASOPHILS % (AUTO) 0.8 % (0-1); EOSINOPHILS # (AUTO) 0.1 X10'3 (0-0.9); EOSINOPHILS % (AUTO) 2.2 % (0-6); HEMATOCRIT 40.2 % (42.0-52.0); HEMOGLOBIN 13.4 g/dl (14.0-17.9); LYMPHOCYTES % (AUTO) 36.2 % (21-51); MEAN CORPUSCULAR HEMOGLOBIN 29.1 PG (27.0-31.0); MEAN CORPUSCULAR HGB CONC 33.2 g/dL (33.0-36.5); MEAN CORPUSCULAR VOLUME 87.7 FL (78-98); MEAN PLATELET VOLUME 7.1 FL (7.4-10.4); MONOCYTES # (AUTO) 0.4 X10'3 (0-0.9); NEUTROPHILS # (AUTO) 2.9 X10'3 (1.8-7.7); NEUTROPHILS % (AUTO) 52.8 % (42-75); PLATELET COUNT 257 X10'3 (140-440); RED BLOOD COUNT 4.59 X10'6 (4.70-6.10); RED CELL DISTRIBUTION WIDTH 14.4 % (11.5-14.5); WHITE BLOOD COUNT 5.6 X10'3 (4.5-11.0)
[2023-05-27 13:04] LABS: ALANINE AMINOTRANSFERASE 64 U/L (12-78); ALBUMIN 3.4 G/DL (3.4-5.0); ALBUMIN/GLOBULIN RATIO 0.8 (1.1-1.5); ALKALINE PHOSPHATASE 123 IU/L (46-116); ANION GAP 8 (8-16); ASPARTATE AMINO TRANSFERASE 36 U/L (10-37); BILIRUBIN,TOTAL 0.3 MG/DL (0.1-1.0); BLOOD UREA NITROGEN 13 MG/DL (7-18); BUN/CREATININE RATIO 13.1 (10.0-20.0); CALCIUM 8.6 MG/DL (8.5-10.1); CHLORIDE 105 MMOL/L (99-107); CREATININE 0.99 MG/DL (0.60-1.10); GLUCOSE 106 MG/DL (70-104); LIPASE 31 U/L (16-77); POTASSIUM 4.3 MMOL/L (3.5-5.1); SODIUM 142 MMOL/L (135-145); TOTAL CARBON DIOXIDE 29.1 MMOL/L (24-32); TOTAL PROTEIN 7.6 G/DL (6.4-8.2); eCRCL 96 ML/MIN; eGFR 79 ML/MIN
[2023-05-27] MEDS ORDERED: famotidine/PF IV inj 40 MG in normal saline 100ml IV soln 100 ML IV SCH (16:15)
[2023-05-27 16:35] LABS: BILIRUBIN,URINE SMALL (Neg); CLARITY,URINE CLOUDY (Clear); COLOR,URINE YELLOW (Yellow); GLUCOSE, URINE NEGATIVE (Neg); KETONES,URINE TRACE mg/dl (Neg); LEUKOCYTE ESTERASE ,URINE NEGATIVE (Neg); NITRITES, URINE NEGATIVE (Neg); OCCULT BLOOD,URINE NEGATIVE (Neg); PH,URINE 5.5 (4.8-8.0); PROTEIN,URINE NEGATIVE (Neg); UROBILINOGEN,URINE 0.2 E.U/dL (0.2-1.0)
[2023-05-27] MEDS: normal saline 1000ml 1,000 ML IV ONE (16:35)
[2023-05-27 16:36] LABS: UA COLLECTION TYPE CLN CATCH MIDSTREAM
[2023-05-27 16:41] LABS: MUCUS STRANDS MODERATE /LPF (Neg); SQUAMOUS EPITHELIAL CELL,UR MODERATE /LPF (FEW)
[2023-05-27 16:42] LABS: BACTERIA,URINE 1+ /HPF (Neg); RBC,URINE 0-2 /HPF (0-2); WBC,URINE 0-4 /HPF (0-4)
[2023-05-27 16:53] LABS: URINE AMPHETAMINE SCREEN NEGATIVE (Neg); URINE BARBITUATE SCREEN NEGATIVE (Neg); URINE BENZODIAZEPINES SCREEN NEGATIVE (Neg); URINE CANNABINOID SCREEN POSITIVE (Neg); URINE COCAINE SCREEN NEGATIVE (Neg); URINE METHADONE SCREEN POSITIVE (Neg); URINE OPIATE SCREEN NEGATIVE (Neg); URINE PHENCYCLIDINE SCREEN NEGATIVE (Neg)
[2023-05-27] MEDS: ondansetron/PF 4mg/2ml inj IV ONE (17:05)
[2023-05-27] MEDS: ketorolac trometh. 30mg/ml inj. IV ONE (17:07)
[2023-05-27] MEDS: famotidine/PF 10 mg/ml inj IV ONE (17:08)
[2023-05-27] MEDS ORDERED: BISA10SU11 RC (17:50)
[2023-05-27] MEDS ORDERED: DOCU-148 PO (17:50)
[2023-05-27] MEDS ORDERED: POLY119P2 PO (17:50)
[2023-05-27] MEDS: magnesium citrate 296ml oral solution PO ONE (18:21)
[2023-05-27 18:31] VITALS: BP 107/74; PULSE 60; RESP 18; TEMP 98.1; O2SAT 95
== END 2023-05-27 18:33 | disposition home or self-care (01) ==
LOC: ER 11:26
DX: R10.84 Generalized abdominal pain (principal); R11.0 Nausea; F10.90 Alcohol use, unspecified, uncomplicated; F15.90 Other stimulant use, unspecified, uncomplicated; F12.90 Cannabis use, unspecified, uncomplicated; F11.90 Opioid use, unspecified, uncomplicated; Z59.00 Homelessness unspecified; Z56.0 Unemployment, unspecified; Z88.1 Allergy status to other antibiotic agents; Z79.899 Other long term (current) drug therapy
CPT/HCPCS: 36415; 71045; 74018; 74176; 80053; 80305; 81001; 83690; 85025; 96361; 96374; 96375; 99285; J1885; J2405; J3490; J7030

== ENCOUNTER 2024-02-09 09:32 | Emergency (ER) | payer MEDICAID ==
[~2024-02-09] VITALS: Ht 185.4 cm; Wt 100.0 kg
[~2024-02-09 09:32] MED LIST changes: +BISA10SU11 RC; +DOCU-148 PO; +POLY119P2 PO
[2024-02-09 09:39] VITALS: BP 135/93; PULSE 95; RESP 18; TEMP 97.1; O2SAT 99
== END 2024-02-09 10:40 | disposition home or self-care (01) ==
LOC: ER 09:32
DX: S92.351A Displaced fracture of fifth metatarsal bone, right foot, initial encounter for closed fracture (principal); F12.90 Cannabis use, unspecified, uncomplicated; F15.90 Other stimulant use, unspecified, uncomplicated; Z88.0 Allergy status to penicillin; Z79.899 Other long term (current) drug therapy; W11.XXXA Fall on and from ladder, initial encounter; Y93.89 Activity, other specified; Y92.89 Other specified places as the place of occurrence of the external cause; Y99.8 Other external cause status
CPT/HCPCS: 73630; 99284; L4360